=== PATIENT | female | born 1985 | race Two or more races ===

== ENCOUNTER 2019-05-05 15:18 | Outpatient (CLI) | payer OTHER ==
--- NOTE | 2019-05-05 17:13 | RADIOLOGY REPORT (SQ) ---
EXAM DESCRIPTION: U/S OB LIMITED COMPLETED DATE/TIME: 05/05/2019 4:54 pm REASON FOR STUDY: r/o PTL COMPARISON: None. TECHNIQUE: Limited transabdominal grayscale ultrasound for evaluation of specific requested obstetri freddie parameters. LIMITATIONS: None. FINDINGS: CERVICAL LENGTH: 3.1 cm Closed. OSMAR: 15.3 cm. FHR: 162 beats per minute. PRESENTATION: Breech. PLACENTA: Total posterior placenta previa. ANATOMY: Not assessed OTHER: No other significant findings. IMPRESSION: LIMITED OBSTETRICAL ULTRASOUND WITH MEASURED PARAMETERS DELINEATED ABOVE. Trimester of : Second trimester - 13 weeks 1 day to 27 weeks 6 days. COMMENT: The findings were sent to the Radiology Results Communication Center at 17:07 on 05/05/2019 to be communicated to a licensed caregiver. TECHNICAL DOCUMENTATION: JOB ID: [id number] [employer]- All Rights Reserved Reading location - IP/workstation name: [email or web address]
[2019-05-05 18:41] LABS: APPEARANCE,URINE SLIGHTLY-CLOUDY; BILIRUBIN,URINE NEGATIVE (NEGATIVE); COLOR,URINE STRAW; GLUCOSE, URINE NEGATIVE (NEGATIVE); KETONES,URINE NEGATIVE (NEGATIVE); LEUKOCYTE ESTERASE,URINE NEGATIVE (NEGATIVE); NITRITE,URINE NEGATIVE (NEGATIVE); PROTEIN,URINE NEGATIVE (NEGATIVE); URINE SPECIFIC GRAVITY 1.002; UROBILINOGEN,URINE NEGATIVE mg/dL (<2.0)
[2019-05-05 19:01] LABS: URINE AMPHETAMINES SCREEN NEGATIVE; URINE BARBITURATES SCREEN NEGATIVE; URINE BENZODIAZEPINES SCREEN NEGATIVE; URINE COCAINE SCREEN NEGATIVE; URINE MARIJUANA (THC) SCREEN NEGATIVE; URINE METHADONE SCREEN NEGATIVE; URINE PHENCYCLIDINE SCREEN NEGATIVE
== END 2019-05-05 17:10 | disposition home or self-care (01) ==
LOC: LC 15:18
PROVIDERS: ATTEND Obstetrics & Gynecology
PROC: 4A1HXCZ Monitoring of Products of Conception, Cardiac Rate, External Approach (ICD-10-PCS; principal; 2019-05-05)
DX: O47.02 False labor before 37 completed weeks of gestation, second trimester (principal); Z3A.26 26 weeks gestation of pregnancy
CPT/HCPCS: 76815; 80307; 81001

== ENCOUNTER 2019-07-30 05:05 | Inpatient (IN) | payer OTHER ==
[2019-07-29 12:59] LABS: APPEARANCE,URINE SLIGHTLY-CLOUDY; BILIRUBIN,URINE NEGATIVE (NEGATIVE); COLOR,URINE YELLOW; GLUCOSE, URINE NEGATIVE (NEGATIVE); KETONES,URINE NEGATIVE (NEGATIVE); LEUKOCYTE ESTERASE,URINE SMALL (NEGATIVE); NITRITE,URINE NEGATIVE (NEGATIVE); PROTEIN,URINE NEGATIVE (NEGATIVE); URINE SPECIFIC GRAVITY 1.006; UROBILINOGEN,URINE NEGATIVE mg/dL (<2.0)
[2019-07-29 13:16] LABS: URINE AMPHETAMINES SCREEN NEGATIVE; URINE BARBITURATES SCREEN NEGATIVE; URINE BENZODIAZEPINES SCREEN NEGATIVE; URINE COCAINE SCREEN NEGATIVE; URINE MARIJUANA (THC) SCREEN NEGATIVE; URINE METHADONE SCREEN NEGATIVE; URINE PHENCYCLIDINE SCREEN NEGATIVE
[2019-07-29 13:28] LABS: ABSOLUTE BASOPHILS # (AUTO) 0.1 10^3/uL (0.0-0.2); ABSOLUTE EOSINOPHILS # (AUTO) 0.2 10^3/uL (0.0-0.6); ABSOLUTE LYMPHOCYTES (AUTO) 1.5 10^3/uL (0.5-4.7); ABSOLUTE MONOCYTES (AUTO) 0.7 10^3/uL (0.1-1.4); ABSOLUTE NEUT (AUTO) 4.8 10^3/uL (1.7-8.2); BASOPHILS % (AUTO) 0.8 % (0-2); EOSINOPHILS % (AUTO) 2.3 % (0-6); HEMOGLOBIN 13.4 g/dL (12.0-15.5); LYMPHOCYTES % (AUTO) 20.9 % (13-45); MEAN CORPUSCULAR HEMOGLOBIN 32.4 pg (27.0-33.4); MEAN CORPUSCULAR HGB CONC 34.4 g/dL (32.0-36.0); MEAN CORPUSCULAR VOLUME 94 fl (80-97); MONOCYTES % (AUTO) 9.3 % (3-13); PLATELET COUNT 213 10^3/uL (150-450); RED BLOOD COUNT 4.14 10^6/uL (3.72-5.28); RED CELL DISTRIBUTION WIDTH 13.7 % (11.5-14.0); SEGMENTED NEUTROPHILS % (AUTO) 66.7 % (42-78); TOTAL CELLS COUNTED % (AUTO) 100 %; WHITE BLOOD COUNT 7.1 10^3/uL (4.0-10.5)
[~2019-07-30 05:05] MED LIST: LIDOCAINE 0.5% INJ-PF (5 MG/ML) 50 ML SDV SUBCUT PRN; RINGERS SOLUTION,LACTATED 1,500 ML IV PRN
[2019-07-30] MEDS ORDERED: CITRIC ACID/SODIUM CITRATE ORAL SOLN 15 ML UDCUP ONE ×2 (05:26→07:08)
[2019-07-30] MEDS ORDERED: CEFAZOLIN INJ 1 GM VIAL ONE (05:26)
[2019-07-30] MEDS ORDERED: ONDANSETRON HCL INJ/PF 4 MG/2 ML SDV ONE (07:08)
[2019-07-30] MEDS ORDERED: PHENYLEPHRINE HCL INJ/PF 10 MG/1 ML SDV ONE (07:08)
[2019-07-30] MEDS ORDERED: MIDAZOLAM 2 MG/2 ML INJ ONE (07:08)
[2019-07-30] MEDS ORDERED: OXYTOCIN/NORMAL SALINE 20 UNIT/1,000 ML RTUINJ ONE ×2 (07:08→08:51)
[2019-07-30] MEDS ORDERED: FENTANYL CITRATE INJ/PF 100 MCG/2 ML AMPUL ONE (07:08)
[2019-07-30] MEDS: CEFAZOLIN SODIUM 2 GM in DEXTROSE 5%-WATER 100 ML IV PRN ×2 (07:26→07:50)
[2019-07-30] MEDS ORDERED: MORPHINE SULFATE 10 MG/ML INJ IV PRN (08:05)
[2019-07-30] MEDS ORDERED: DIPHENHYDRAMINE HCL 50 MG/ML VIAL IV PRN (08:05)
[2019-07-30] MEDS ORDERED: FENTANYL CITRATE INJ/PF 100 MCG/2 ML AMPUL IV PRN ×2 (08:05)
[2019-07-30] MEDS ORDERED: PROMETHAZINE HCL INJ 25 MG/1 ML VIAL IV PRN ×2 (08:05→08:15)
[2019-07-30] MEDS ORDERED: ACETAMINOPHEN 325 MG TABLET PO PRN (08:15)
[2019-07-30] MEDS ORDERED: SIMETHICONE 80 MG TAB.CHEW PO PRN (08:15)
[2019-07-30] MEDS ORDERED: MEASLES,MUMPS&RUBELLA VACC/PF 0.5 ML VIAL SUBCUT PRN (08:15)
[2019-07-30] MEDS ORDERED: ACETAMINOPHEN 1,000 MG/100 ML RTUPB IV PRN (08:15)
[2019-07-30] MEDS ORDERED: OXYTOCIN/NORMAL SALINE 20 UNIT/1,000 ML RTUINJ IV PRN (08:15)
[2019-07-30] MEDS ORDERED: MORPHINE SULFATE 10 MG/ML INJ IM PRN (08:15)
[2019-07-30] MEDS ORDERED: DIPH/PERTUSS(ACELL)/TETANUS VAC/PF 0.5 ML SYR (>=10YO) IM PRN (08:15)
--- NOTE | 2019-07-30 08:19 | Operative Report ---
Operative Report DATE OF SURGERY: 07/30/19 PREOPERATIVE DIAGNOSIS: IUP at term with placenta previa POSTOPERATIVE DIAGNOSIS: Same OPERATION: Primary low transverse section delivery of a viable male SURGEON: KATALINA MODI ANESTHESIA: Spinal TISSUE REMOVED OR ALTERED: Placenta COMPLICATIONS: None ESTIMATED BLOOD LOSS: Approximate thousand cc PROCEDURE: The patient was taken to the operating room where spinal anesthesia was obtained and found to be adequate. She was then prepped and draped in the normal sterile fashion and placed in the dorsal supine position with a leftward tilt. A Pfannenstiel skin incision was then made and carried through to the underlying layers of the fascia with the scalpel. The fascia was incised in the midline and the incision extended laterally with the Prajapati scissors. The superior aspect of the fascial incision was then grasped with Stanfield clamps elevated and the underlying rectus muscles dissected off bluntly. Attention was then turned to the inferior aspect of the fascial incision which in a similar fashion was grasped, tented up with Negar clamps, and the rectus muscles dissected off bluntly. The rectus muscles were then in the midline and the peritoneum at the amount identified and entered bluntly. The peritoneal incision was then extended superiorly and inferiorly with good visualization of the bladder. [The bladder blade was inserted and the vesicouterine peritoneum identified grasped with [place] pickups and entered sharply with the Metzenbaum scissors. His incision was then extended laterally with the Metzenbaum scissors and a bladder flap created digitally. The bladder blade was then reinserted and the lower uterine segment incised in a transverse fashion with the scalpel. The uterine incision was then extended bluntly. The bladder blade was removed and the infant's head was delivered from cephalic presentation atraumatically. The nose and mouth were suctioned and the cord doubly clamped and cut. And the infant was handed off to waiting pediatricians. The placenta was then delivered manully and the uterus exteriorized and cleared of all clots and debris. The uterine incision was then repaired with 1-0 Vicryl in a running locked fashion. A second layer of the same suture was used to obtain hemostasis via imbrication of the initial layer. The uterus was returned to the patient's abdomen. The gutters were cleared of all clots and debris. All operative sites were noted to be hemostatic. The fascia was r eapproximated with 0 Vicryl in a running fashion from each lateral edge to the midline. The patient tolerated the procedure well. Sponge lap needle and instrument counts are correct -2. 2 g of Ancef were given prior to skin incision. The patient was taken to the recovery area awake and in stable condition.
[2019-07-30] MEDS ORDERED: MISOPROSTOL 0.2 MG TABLET ONE (09:25)
[2019-07-30] MEDS ORDERED: MEPERIDINE HCL/PF INJ 25 MG/1 ML DISP.SYRIN ONE ×2 (09:34→10:19)
[2019-07-30] MEDS ORDERED: MISOPROSTOL 0.2 MG TABLET PR ONE (09:37)
[2019-07-30] MEDS: MEPERIDINE HCL/PF INJ 25 MG/1 ML DISP.SYRIN IV PRN ×2 (09:38→10:20)
[2019-07-30 09:50] LABS: HEMATOCRIT 27.9 % (36.0-47.0); MEAN CORPUSCULAR HEMOGLOBIN 32.2 pg (27.0-33.4); MEAN CORPUSCULAR HGB CONC 33.7 g/dL (32.0-36.0); MEAN CORPUSCULAR VOLUME 96 fl (80-97); PLATELET COUNT 172 10^3/uL (150-450); RED BLOOD COUNT 2.92 10^6/uL (3.72-5.28); RED CELL DISTRIBUTION WIDTH 13.8 % (11.5-14.0); WHITE BLOOD COUNT 13.5 10^3/uL (4.0-10.5)
[2019-07-30 09:52] LABS: HEMOGLOBIN 9.4 g/dL (12.0-15.5)
[2019-07-30] MEDS ORDERED: ACETAMINOPHEN 1,000 MG/100 ML RTUPB IV ONE (10:06)
[2019-07-30] MEDS ORDERED: METHYLERGONOVINE MALEATE INJ/PF 0.2 MG/1 ML AMPULE IM ONE (10:16)
[2019-07-30] MEDS ORDERED: METHYLERGONOVINE MALEATE INJ/PF 0.2 MG/1 ML AMPULE ONE (10:16)
[2019-07-30] MEDS ORDERED: LABETALOL HCL INJ 20 MG/4 ML DISP.SYRIN IV ONE ×2 (10:22)
[2019-07-30] MEDS: LACTATED RINGERS 1000 ML IV PRN ×2 (10:49→20:25)
[2019-07-30] MEDS: DOCUSATE SODIUM 100 MG CAPSULE PO SCH ×2 (11:35→18:02)
[2019-07-30] MEDS: PRENATAL VITAMIN W DHA CAPSULE PO SCH (11:35)
[2019-07-30] MEDS: METHYLERGONOVINE MALEATE 0.2 MG TABLET PO SCH ×3 (14:23→22:26)
[2019-07-30 16:56] LABS: HEMATOCRIT 27.8 % (36.0-47.0); HEMOGLOBIN 9.6 g/dL (12.0-15.5); MEAN CORPUSCULAR HEMOGLOBIN 32.3 pg (27.0-33.4); MEAN CORPUSCULAR HGB CONC 34.4 g/dL (32.0-36.0); MEAN CORPUSCULAR VOLUME 94 fl (80-97); PLATELET COUNT 161 10^3/uL (150-450); RED BLOOD COUNT 2.96 10^6/uL (3.72-5.28); RED CELL DISTRIBUTION WIDTH 13.4 % (11.5-14.0); WHITE BLOOD COUNT 10.1 10^3/uL (4.0-10.5)
[2019-07-30] MEDS: OXYCODONE-ACETAMINOPHEN 5-325 MG TABLET PO PRN ×2 (18:02→22:26)
[2019-07-30] MEDS: KETOROLAC TROMETHAMINE INJ/PF 30 MG/1 ML SDV IV SCH (18:34)
[2019-07-31] MEDS: METHYLERGONOVINE MALEATE 0.2 MG TABLET PO SCH ×5 (02:38→17:05)
[2019-07-31] MEDS: OXYCODONE-ACETAMINOPHEN 5-325 MG TABLET PO PRN ×3 (02:38→14:54)
[2019-07-31] MEDS: KETOROLAC TROMETHAMINE INJ/PF 30 MG/1 ML SDV IV SCH ×3 (02:38→21:07)
[2019-07-31 07:17] LABS: HEMATOCRIT 28.2 % (36.0-47.0); HEMOGLOBIN 9.9 g/dL (12.0-15.5); MEAN CORPUSCULAR HEMOGLOBIN 32.8 pg (27.0-33.4); MEAN CORPUSCULAR VOLUME 94 fl (80-97); PLATELET COUNT 171 10^3/uL (150-450); RED BLOOD COUNT 3.01 10^6/uL (3.72-5.28); RED CELL DISTRIBUTION WIDTH 13.7 % (11.5-14.0); WHITE BLOOD COUNT 11.4 10^3/uL (4.0-10.5)
[2019-07-31] MEDS: PRENATAL VITAMIN W DHA CAPSULE PO SCH (09:02)
[2019-07-31] MEDS: DOCUSATE SODIUM 100 MG CAPSULE PO SCH ×2 (09:02→17:06)
--- NOTE | 2019-07-31 09:10 | PDOC PROGRESS REPORT ---
Subjective-OB Progress Note for:: 07/31/19 Subjective: Doing well, eating bkf, OOB in room without issues, no dizziness, + gas, , hsb at BS Physical Exam (OB) Vital Signs: Temp Pulse Resp BP Pulse Ox 97.7 F 83 18 111/68 98 07/31/19 07:31 07/31/19 07:31 07/31/19 07:31 07/31/19 07:31 07/31/19 07:31 Intake & Output 07/30/19 07/31/19 08/01/19 06:59 06:59 06:59 Intake Total 1000 Output Total 1750 Balance -750 Weight 68.95 kg - Dressing Removed: No Incision: Dressing - Lochia Lochia Amount: Small 10-25 ml Lochia Color: Rubra/Red - Abdomen Description: Soft Hernia Present: No Fundal Description: Firm Fundal Height: u/u - u/2 Objective-Diagnostic Laboratory: 07/31/19 06:56 07/30/19 07/30/19 07/31/19 09:32 16:30 06:56 WBC 13.5 H 10.1 11.4 H RBC 2.92 L 2.96 L 3.01 L Hgb 9.4 L D 9.6 L 9.9 L Hct 27.9 L 27.8 L 28.2 L MCV 96 94 94 MCH 32.2 32.3 32.8 MCHC 33.7 34.4 35.0 RDW 13.8 13.4 13.7 Plt Count 172 161 171 Assessment and Plan(PN) - Assessment and Plan (1) Placenta previa affecting delivery Is this a current diagnosis for this admission?: Yes (2) conceived through in vitro fertilization Qualifiers: Trimester: first trimester Qualified Code(s): O09.811 - Supervision of resulting from assisted reproductive technology, first trimester Is this a current diagnosis for this admission?: Yes (3) hemorrhage of vagina Is this a current diagnosis for this admission?: Yes (4) Status post primary low transverse section Is this a current diagnosis for this admission?: Yes - Time Spent with Patient Time with patient: Less than 15 minutes Medications reviewed and adjusted accordingly: Yes - Disposition Anticipated Discharge: Home Within: within 48 hours
[2019-07-31] MEDS: IBUPROFEN 800 MG TABLET PO SCH ×2 (12:43→17:05)
[2019-07-31 21:38] LABS: HEMATOCRIT 33.4 % (36.0-47.0); HEMOGLOBIN 11.4 g/dL (12.0-15.5); MEAN CORPUSCULAR HEMOGLOBIN 32.3 pg (27.0-33.4); MEAN CORPUSCULAR VOLUME 95 fl (80-97); PLATELET COUNT 230 10^3/uL (150-450); RED BLOOD COUNT 3.51 10^6/uL (3.72-5.28); RED CELL DISTRIBUTION WIDTH 13.5 % (11.5-14.0); WHITE BLOOD COUNT 12.3 10^3/uL (4.0-10.5)
[2019-07-31] MEDS ORDERED: IRON SUCROSE COMPLEX INJ/PF 100 MG/5 ML SDV IV PRN (23:08)
[2019-07-31] MEDS ORDERED: IRON SUCROSE COMPLEX 100 MG in NORMAL SALINE 100 ML IV ONE (23:15)
[2019-08-01] MEDS: IBUPROFEN 800 MG TABLET PO SCH ×3 (01:29→12:09)
[2019-08-01] MEDS: DOCUSATE SODIUM 100 MG CAPSULE PO SCH (10:19)
[2019-08-01] MEDS: PRENATAL VITAMIN W DHA CAPSULE PO SCH (10:19)
--- NOTE | 2019-08-01 11:13 | PDOC DISCHARGE SUMMARY ---
Impression - Admit/DC Date/PCP Admission Date/Primary Care Provider: 07/30/19 05:05 NANCY COFFEY MD Discharge Date: 08/01/19 - POD #2, pt doing well, desires to go home today, Up OOB, ambulating in the room. A+, - Discharge Diagnosis (1) Placenta previa affecting delivery Is this a current diagnosis for this admission?: Yes (2) hemorrhage of vagina Is this a current diagnosis for this admission?: Yes (3) conceived through in vitro fertilization Is this a current diagnosis for this admission?: Yes (4) Status post primary low transverse section Is this a current diagnosis for this admission?: Yes - Additional Information Resuscitation Status: Full Code Discharge Diet: As Tolerated, Regular Discharge Activity: Activity As Tolerated, No Driving, No Lifting Over 10 Pounds, Pelvic Rest Referrals: [facility] [Provider Group] Prescriptions: Ibuprofen [Motrin 800 mg Tablet] 800 mg PO Q6 #60 tablet Oxycodone HCl/Acetaminophen [Percocet 5-325 mg Tablet] 1 tab PO Q4HP PRN #30 tablet PRN Reason: Pain Scale Of 4 Home Medications: 95/Iron Fum/Folic/Dha [ + Dha Combo Pack] 1 cap PO DAILY 05/05/19 Ibuprofen [Motrin 800 mg Tablet] 800 mg PO Q6 #60 tablet 08/01/19 Oxycodone HCl/Acetaminophen [Percocet 5-325 mg Tablet] 1 tab PO Q4HP PRN #30 tablet 08/01/19 HPI Reason(s) for Admission: Ceasarean Section-Primary Procedures: NST, Ultrasound Intrapartum Procedure(s): : Low Cervical, Transverse Hospital Course Hospital Course: routine Results Laboratory Results: WBC 12.3 10^3/uL (4.0-10.5) H 07/31/19 21:07 RBC 3.51 10^6/uL (3.72-5.28) L 07/31/19 21:07 Hgb 11.4 g/dL (12.0-15.5) L 07/31/19 21:07 Hct 33.4 % (36.0-47.0) L 07/31/19 21:07 MCV 95 fl (80-97) 07/31/19 21:07 MCH 32.3 pg (27.0-33.4) 07/31/19 21:07 MCHC 34.0 g/dL (32.0-36.0) 07/31/19 21:07 RDW 13.5 % (11.5-14.0) 07/31/19 21:07 Plt Count 230 10^3/uL (150-450) 07/31/19 21:07 Lymph % (Auto) 20.9 % (13-45) 07/29/19 11:40 [place] % (Auto) 9.3 % (3-13) 07/29/19 11:40 Eos % (Auto) 2.3 % (0-6) 07/29/19 11:40 Baso % (Auto) 0.8 % (0-2) 07/29/19 11:40 Absolute Neuts (auto) 4.8 10^3/uL (1.7-8.2) 07/29/19 11:40 Absolute Lymphs (auto) 1.5 10^3/uL (0.5-4.7) 07/29/19 11:40 Absolute Monos (auto) 0.7 10^3/uL (0.1-1.4) 07/29/19 11:40 Absolute Eos (auto) 0.2 10^3/uL (0.0-0.6) 07/29/19 11:40 Absolute Basos (auto) 0.1 10^3/uL (0.0-0.2) 07/29/19 11:40 Seg Neutrophils % 66.7 % (42-78) 07/29/19 11:40 Urine Color YELLOW 07/29/19 11:25 Urine Appearance SLIGHTLY-CLOUDY 07/29/19 11:25 Urine pH 7.0 (5.0-9.0) 07/29/19 11:25 Ur Specific [place] 1.006 07/29/19 11:25 Urine Protein NEGATIVE mg/dL (NEGATIVE) 07/29/19 11:25 Urine Glucose (UA) NEGATIVE mg/dL (NEGATIVE) 07/29/19 11:25 Urine Ketones NEGATIVE mg/dL (NEGATIVE) 07/29/19 11:25 Urine Blood NEGATIVE (NEGATIVE) 07/29/19 11:25 Urine Nitrite NEGATIVE (NEGATIVE) 07/29/19 11:25 Urine Bilirubin NEGATIVE (NEGATIVE) 07/29/19 11:25 Urine Urobilinogen NEGATIVE mg/dL (<2.0) 07/29/19 11:25 Ur Leukocyte Esterase SMALL (NEGATIVE) H 07/29/19 11:25 Urine WBC (Auto) 5 /HPF 07/29/19 11:25 Urine RBC (Auto) 2 /HPF 07/29/19 11:25 Urine Bacteria (Auto) 3+ /HPF 07/29/19 11:25 Squamous Epi Cells Auto 4 /HPF 07/29/19 11:25 Urine Mucus (Auto) RARE /LPF 07/29/19 11:25 Urine Ascorbic Acid NEGATIVE (NEGATIVE) 07/29/19 11:25 Urine Opiates Screen NEGATIVE 07/29/19 11:25 Urine Methadone Screen NEGATIVE 07/29/19 11:25 Ur Barbiturates Screen NEGATIVE 07/29/19 11:25 Ur Phencyclidine Scrn NEGATIVE 07/29/19 11:25 Ur Amphetamines Screen NEGATIVE 07/29/19 11:25 U Benzodiazepines Scrn NEGATIVE 07/29/19 11:25 Urine Cocaine Screen NEGATIVE 07/29/19 11:25 U Marijuana (THC) Screen NEGATIVE 07/29/19 11:25 Blood Type A POSITIVE 07/29/19 11:40 Antibody Screen NEGATIVE 07/29/19 11:40 Plan Health Concerns: Routine Post Op, iron rich foods Plan of Treatment: d/c to home, pt to f/u with [facility] in one week for incision check
[2019-08-01 12:44] VITALS: BP 108/76
== END 2019-08-01 13:45 | disposition home or self-care (01) | DRG 787 ==
LOC: 2S 05:05
PROVIDERS: ADMIT Obstetrics & Gynecology Gynecology; ATTEND Obstetrics & Gynecology Gynecology
PROC: 10D00Z1 Extraction of Products of Conception, Low, Open Approach (ICD-10-PCS; principal; 2019-07-30 07:45)
DX: O44.03 Complete placenta previa NOS or without hemorrhage, third trimester (principal); O72.1 Other immediate postpartum hemorrhage; Z3A.39 39 weeks gestation of pregnancy; Z37.0 Single live birth
CPT/HCPCS: 1961; 36415; 59025; 80307; 81001; 85025; 85027; 86850; 86900; 86901; 94799; J0131; J0690; J1756; J1885; J2175; J2210; J2250; J2270; J2370; J2405; J2550; J2590; J3010; J3490; J7050; J7060; J7120